=== PATIENT | male | born 1980 | race Caucasian/White ===

== ENCOUNTER 2022-04-14 00:16 | Emergency (ER) | payer MEDICAID, SELFPAY ==
[2022-04-14 00:17] VITALS: BP 137/88; PULSE 97; RESP 18; TEMP 36.8; O2SAT 99; BMI 22.1
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
[2022-04-14 01:14] VITALS: BP 131/80; PULSE 81; RESP 16; O2SAT 97
[2022-04-14] MEDS: Ibuprofen 600 MG Tablet PO (01:16)
== END 2022-04-14 01:17 | disposition home or self-care (01) ==
PROVIDERS: Emergency Provider Emergency Medicine; Visit Provider Emergency Medicine
DX: S16.1XXA Strain of muscle, fascia and tendon at neck level, initial encounter (principal); S80.02XA Contusion of left knee, initial encounter; F17.210 Nicotine dependence, cigarettes, uncomplicated; V44.6XXA Car passenger injured in collision with heavy transport vehicle or bus in traffic accident, initial encounter
CPT/HCPCS: 72040; 73564; 99283

== ENCOUNTER 2023-10-31 21:18 | Observation (INO) | payer MEDICAID, SELFPAY ==
[2023-10-31 21:19] VITALS: BP 127/86; PULSE 112; RESP 16; TEMP 36.6; O2SAT 98; BMI 21.5
[2023-10-31 22:30] VITALS: BP 108/70; O2SAT 96
[2023-10-31 23:00] VITALS: BP 104/74; PULSE 101; RESP 18; O2SAT 97
[2023-10-31 23:00] LABS: Absolute Lymphocyte Count 3.18 X10^3/uL (0.83-4.51); Absolute Neutrophil Count 4.9 X10^3/uL (2.0-7.7); Basophil# 0.05 X10^3/uL; Basophil% 0.6 % (0-1); Eosinophil# 0.08 X10^3/uL; Eosinophils% 0.9 % (0-5); Hematocrit 38.6 % (40-54); Hemoglobin 12.4 g/dL (13.0-16.5); Lymphocyte # 3.18 X10^3/ul (0.83-4.51); Lymphocyte % 35.6 % (19-41); Mean Corp Hgb Conc 32.1 g/dL (32-36); Mean Corpuscular Hgb 29.2 pg (27.0-32.0); Mean Corpuscular Volume 90.8 fL (80-94); Mean Platelet Vol. 8.6 fl (6.2-12.0); Monocyte# 0.72 X10^3/uL; Monocyte% 8.1 % (0-10); NRBC Flagged by Analyzer 0 % (0-5); Neutrophil # 4.89 X10^3/uL (2.7-7.7); Neutrophil % 54.7 % (47-70); Platelet Count 316 K/mm3 (150-450); RBC Distribution Width CV 12.5 % (11.6-14.6); Red Blood Count 4.25 M/mm3 (4.6-6.2); White Blood Count 8.9 K/mm3 (4.4-11.0)
[2023-10-31 23:13] LABS: Alcohol, Blood (Medical)-Serum < 3.0 mg/dL
[2023-10-31 23:17] LABS: AST(SGOT) 12 U/L (15-37); Alanine Aminotransfer ALT/SGPT 21 U/L (16-61); Albumin, Serum 3.7 g/dL (3.2-5.0); Alkaline Phosphatase 59 U/L (45-117); Anion Gap 7 (5-15); BUN 16 mg/dL (7-18); BUN/Creat Ratio 13.9 RATIO (10-20); Bilirubin, Direct 0.23 mg/dL (0.00-0.30); Calcium,Total 8.8 mg/dL (8.5-10.1); Chloride 103 mmol/L (98-107); Creatinine, Serum 1.15 mg/dL (0.70-1.30); EST Glomerular Filtration Rate 75 mL/min (>60); Est Glom Filt Rate - Afr Amer 90 mL/min (>60); Estimated Creatinine Clearance 82.17 ml/min; Globulin 3.5 g/dL (2.2-4.2); Glucose 111 mg/dL (74-106); Potassium 3.6 mmol/L (3.5-5.1); Protein, Total 7.2 g/dL (6.4-8.2); Sodium Level 138 mmol/L (136-145)
[2023-11-01] VITALS: BP 98/65; O2SAT 99
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
[2023-11-01 01:00] VITALS: BP 109/66; PULSE 93; RESP 18; TEMP 36.2; O2SAT 98
[2023-11-01 01:21] LABS: Amphetamine Urine VISTA POSITIVE (<1000 ng/mL); Barbiturate Urine VISTA NEGATIVE (< 200 ng/mL); Benzodiazepine Urine VISTA NEGATIVE (< 200 ng/mL); Cocaine Urine VISTA NEGATIVE (< 300 ng/mL); Ecstacy Urine VISTA POSITIVE (< 500 ng/mL); Methadone Urine VISTA NEGATIVE (< 300 ng/mL); PCP Urine VISTA NEGATIVE (< 25 ng/mL); THC Urine VISTA POSITIVE (< 50 ng/mL); Vista UDS pH Range 5
[2023-11-01 01:57] VITALS: BMI 19.3
[2023-11-01 02:16] VITALS: BP 106/73; PULSE 94; RESP 16; TEMP 36.4; O2SAT 99
--- NOTE | 2023-11-01 07:38 | PCM.PN.HOSP ---
Reason for Visit Reason for Visit: Opiate detox Subjective Subjective Mr. Louis is a 42-year-old male who presents emergency department at [facility] on 11/01/2023 early in the morning requesting detox from fentanyl. He also reports associated methamphetamine use and a history of alcohol use. He is no longer drinking alcohol on a regular basis. He reports substance abuse has been intravenous. Withdrawal symptoms started approximately 1 day prior to presentation after his last use. Track rousseau were noted on bilateral upper extremities on presentation but no signs of infection was noted and patient did indicate he had chronic issues with skin picking due to his methamphetamine use. Vital signs on presentation showed a temperature of 97.8, heart rate 112, respiratory rate 16, blood pressure was 127/86 and pulse ox was 98% on room air. His CBC was overall unremarkable. Chemistry panel was unremarkable. Urine tox screen showed positivity for MDMA, amphetamines and cannabinoids. Alcohol level was unremarkable. He was admitted to the medical floor and started on a phenobarbital taper with supportive medications for symptom control related to opiate detox. Objective Data Objective Data Vital Signs: Vital Signs Temp Pulse Resp BP Pulse Ox O2 Del Method 97.5 F L 94 16 106/73 99 Room Air 11/01/23 02:16 11/01/23 02:16 11/01/23 02:16 11/01/23 02:16 11/01/23 02:16 11/01/23 02:16 Oxygen Delivery Method Room Air Weight: 64.5 kg Body Mass Index (BMI) 19.3 Intake & Output: Intake and Output for Last 24 Hours 10/30/23 10/31/23 11/01/23 23:59 23:59 23:59 Intake Total 440 / 440 Balance 440 / 440 Lab / Micro Data 10/31/23 22:53 10/31/23 22:53 Labs: Laboratory Results - last 24 hr 10/31/23 22:53: WBC 8.9, RBC 4.25 L, Hgb 12.4 L, Hct 38.6 L, MCV 90.8, MCH 29.2, MCHC 32.1, RDW Std Deviation 41.0, RDW Coeff of Paul 12.5, Plt Count 316, MPV 8.6, Immature Gran % (Auto) 0.100, Neut % (Auto) 54.7, Lymph % (Auto) 35.6, [place] % (Auto) 8.1, Eos % (Auto) 0.9, Baso % (Auto) 0.6, Absolute Neuts (auto) 4.9, Absolute Lymphs (auto) 3.18, Nucleated RBC % 0, Sodium 138, Potassium 3.6, Chloride 103, Carbon Dioxide 28.0, Anion Gap 7, BUN 16, Creatinine 1.15, Estim Creat Clear Calc 82.17, Est GFR (MDRD) Af Amer 90, Est GFR (MDRD) Non-Af 75, BUN/Creatinine Ratio 13.9, Glucose 111 H, Calcium 8.8, Total Bilirubin 0.70, Direct Bilirubin 0.23, AST 12 L, ALT 21, Alkaline Phosphatase 59, Total Protein 7.2, Albumin 3.7, Globulin 3.5, Ethyl Alcohol < 3.0 11/01/23 01:00: Urine Opiates Screen NEGATIVE, Urine Methadone Screen NEGATIVE, Ur Barbiturates Screen NEGATIVE, Ur Phencyclidine Scrn NEGATIVE, Ur Amphetamines Screen POSITIVE H, MDMA (Ecstasy) Screen POSITIVE H, U Benzodiazepines Scrn NEGATIVE, Urine Cocaine Screen NEGATIVE, U Cannabinoids Screen POSITIVE H, Ur Drug Screen Comment Assessment & Plan Assessment/Plan (1) Desire for detoxification: (2) Opiate withdrawal: (3) Withdrawal from methamphetamine: PLAN: Plan Acute opiate withdrawal -Continue buprenorphine taper -continue supportive medications next-since patient has history of IVDU will check HIV and hepatitis C antibody -If antibodies positive will check viral load -180 consultation for assistance with discharge planning Methamphetamine abuse -highly recommend cessation -No options for detox -Follow-up after discharge as delineated by 180 after evaluation History of EtOH abuse -Patient reports he is no longer using Tobacco abuse -Ongoing tobacco abuse next-highly recommend cessation -Nicotine patch available DVT prophylaxis -continue Lovenox CODE STATUS -full code
[2023-11-01 07:47] VITALS: BP 106/67; PULSE 76; RESP 18; TEMP 36.6; O2SAT 98
[2023-11-01] MEDS: hydrOXYzine PAM 25 MG Capsule 50 MG PO ×2 (09:40→16:02)
[2023-11-01] MEDS: Methocarbamol 750 MG Tablet PO ×2 (09:40→16:02)
[2023-11-01] MEDS: cloNIDine HCl 0.1 MG Tablet PO (09:40)
--- NOTE | 2023-11-01 10:27 | ADDICTION ---
clinician met with client to discuss his hx of addiction and motivation to be sober. client presented cooperative and precontemplative relating to be sobriety. he reported I like getting high, it's fun. clinician utilized MO skills to assist client in exploring change and sobriety. client identified that he can be sober at [facility] in [place]; they are sober and this area triggers him to want to use.
--- NOTE | 2023-11-01 14:15 | CASEMGMT ---
Social Work SW attempted to see pt twice for SDOH, pt is sleeping soundly. SW will continue to try to see pt during this hospital stay. TANIKA Huddelston
[2023-11-01 15:56] VITALS: BP 109/67; PULSE 79; RESP 18; TEMP 36.6; O2SAT 97
[2023-11-01] MEDS: Buprenorphine HCl 2 MG TAB.SUBL SL (16:04)
--- NOTE | 2023-11-01 16:12 | NURSING ---
pt father phoned in and updated. states close friend (pt's brothers brian) is Samantha Jones [phone] and states they are planning on coming up to [place] to pick pt up at day of discharge. Informed cannot release any information other than those listed on demographics unless pt authorizes. States understanding
--- NOTE | 2023-11-01 17:01 | NURSING ---
pt states okay to release information to Samantha Jones
[2023-11-01 19:55] VITALS: BP 104/63; PULSE 86; RESP 14; TEMP 36.7; O2SAT 99
[2023-11-01] MEDS: Dicyclomine 10 MG Capsule 20 MG PO (20:00)
[2023-11-01] MEDS: Gabapentin 300 MG Capsule PO (20:00)
[2023-11-02] MEDS: Buprenorphine HCl 2 MG TAB.SUBL SL ×3 (00:15→15:49)
[2023-11-02] MEDS: Methocarbamol 750 MG Tablet PO ×4 (00:15→21:45)
[2023-11-02] MEDS: hydrOXYzine PAM 25 MG Capsule 50 MG PO ×4 (00:15→21:45)
[2023-11-02 04:30] VITALS: BP 106/70; PULSE 84; RESP 16; TEMP 36.6; O2SAT 99
[2023-11-02] MEDS: Dicyclomine 10 MG Capsule 20 MG PO ×2 (09:02→15:49)
[2023-11-02] MEDS: Ondansetron 8 MG Tablet PO (09:02)
--- NOTE | 2023-11-02 09:12 | ADDICTION ---
clinician met with client to follow up. he presented as anxious and when asked, he endorsed sx's of anxiety. client continues to deny the need for tx.
[2023-11-02] MEDS: Gabapentin 300 MG Capsule PO ×2 (10:14→21:45)
[2023-11-02] MEDS: cloNIDine HCl 0.1 MG Tablet PO (10:14)
--- NOTE | 2023-11-02 11:40 | PCM.PN.HOSP ---
Reason for Visit Reason for Visit: Opiate detox Subjective Subjective Patient states he is having minimal symptoms. Denies any nausea or vomiting. Denies diarrhea. Biggest complaint is myalgias. Hoping to be able to be discharged tomorrow as his family is going to be here to take him to [place]. He does state that he feels like he will be good enough tomorrow to be discharged. Objective Data Objective Data Vital Signs: Vital Signs Temp Pulse Resp BP Pulse Ox O2 Del Method 98 F 84 16 106/70 99 Room Air 11/02/23 04:30 11/02/23 04:30 11/02/23 04:30 11/02/23 04:30 11/02/23 04:30 11/02/23 04:30 Oxygen Delivery Method Room Air Weight: 64.5 kg Body Mass Index (BMI) 19.3 Intake & Output: Intake and Output for Last 24 Hours 10/31/23 11/01/23 11/02/23 23:59 23:59 23:59 Intake Total 440 / 440 Balance 440 / 440 Lab / Micro Data 10/31/23 22:53 10/31/23 22:53 Physical Exam Const alert, oriented x3, no apparent distress, average body habitus and well nourished; Negative for healthy appearing Constitutional Narrative: Middle-aged, white male, lying in bed sleeping but awakens easily, appears older than stated age, does not appear toxic HEENT head/scalp atraumatic Head and Scalp: normocephalic Extremity no clubbing, cyanosis or edema Neuro oriented x3, moves all extremities and no focal motor deficits Psych Psych Narrative: Affect is slightly flat however patient makes good eye contact and interacts appropriately Assessment & Plan Assessment/Plan (1) Desire for detoxification: (2) Opiate withdrawal: PLAN: Plan Acute opiate withdrawal -Continue buprenorphine taper -continue supportive medications -HIV and hepatitis C antibody are pending -If antibodies positive will check viral load -180 has evaluated the patient and the patient is planning to move to [place] Methamphetamine abuse -highly recommend cessation -No options for detox History of EtOH abuse -Patient reports he is no longer using Tobacco abuse -Ongoing tobacco abuse -highly recommend cessation -Nicotine patch available DVT prophylaxis -continue Lovenox CODE STATUS -full code Charges/Coding Visit Charges Inpatient E&M: 81655 Subs Hosp L1
[2023-11-02 15:47] VITALS: BP 104/81; PULSE 81; RESP 16; TEMP 36.7; O2SAT 98
[2023-11-02] MEDS: traZODone 100 MG Tablet PO (21:45)
[2023-11-02] MEDS: Acetaminophen 500 MG Tablet 1000 MG PO (21:45)
[2023-11-02 22:00] VITALS: BP 108/52; PULSE 76; RESP 16; TEMP 36.8; O2SAT 98
[2023-11-03] MEDS: Buprenorphine HCl 2 MG TAB.SUBL SL ×3 (01:20→16:38)
[2023-11-03 02:48] VITALS: BP 118/68; PULSE 81; RESP 16; TEMP 36.6; O2SAT 98
[2023-11-03] MEDS: hydrOXYzine PAM 25 MG Capsule 50 MG PO (08:52)
[2023-11-03 08:54] VITALS: BP 99/54; PULSE 71; RESP 18; TEMP 36.4; O2SAT 100
[2023-11-03] MEDS: Acetaminophen 500 MG Tablet 1000 MG PO (10:39)
[2023-11-03] MEDS: Methocarbamol 750 MG Tablet PO ×2 (10:39→21:54)
--- NOTE | 2023-11-03 12:06 | PCM.PN.HOSP ---
Reason for Visit Reason for Visit: Opiate detox Subjective Subjective No specific complaints at this time. Family had trouble getting a rental car and will be here till tomorrow to pick him up for discharge. Objective Data Objective Data Vital Signs: Vital Signs Temp Pulse Resp BP Pulse Ox O2 Del Method 97.6 F L 71 18 99/54 L 100 Room Air 11/03/23 08:54 11/03/23 08:54 11/03/23 08:54 11/03/23 08:54 11/03/23 08:54 11/03/23 08:54 Oxygen Delivery Method Room Air Weight: 64.5 kg Body Mass Index (BMI) 19.3 Intake & Output: Intake and Output for Last 24 Hours 11/01/23 11/02/23 11/03/23 23:59 23:59 23:59 Intake Total 440 / 440 Balance 440 / 440 Lab / Micro Data 10/31/23 22:53 10/31/23 22:53 Physical Exam Const alert, oriented x3, no apparent distress and average body habitus Constitutional Narrative: Middle-aged, white male, laying in left side-lying, appears comfortable, nontoxic, is awake watching television HEENT head/scalp atraumatic Head and Scalp: normocephalic Extremity no clubbing, cyanosis or edema Neuro oriented x3 and moves all extremities Psych Psych Narrative: Affect is flat but patient interacts appropriately Assessment & Plan Assessment/Plan (1) Desire for detoxification: (2) Opiate withdrawal: PLAN: Plan Acute opiate withdrawal -Continue buprenorphine taper -continue supportive medications -HIV and hepatitis C antibody are still pending -If antibodies positive will check viral load -180 has evaluated the patient and the patient is planning to move to [place] Methamphetamine abuse -highly recommend cessation -No options for detox History of EtOH abuse -Patient reports he is no longer using Tobacco abuse -Ongoing tobacco abuse -highly recommend cessation -Nicotine patch available DVT prophylaxis -continue Lovenox CODE STATUS -full code Charges/Coding Visit Charges Inpatient E&M: 81071 Subs Hosp L1
[2023-11-03 12:58] VITALS: BP 98/59; PULSE 91; RESP 16; TEMP 36.6; O2SAT 99
[2023-11-03 16:30] LABS: HIV - WCH Non-Reactive (Nonreactive); Hepatitis C Antibody Preliminary Reactive (Nonreactive)
--- NOTE | 2023-11-03 16:33 | NURSING ---
HCV RNA came back positive per Drex. This RN texted Dr. Rosales via [employer] to inform her of the results.
[2023-11-03 16:40] VITALS: BP 100/62; PULSE 90; RESP 18; TEMP 36.6; O2SAT 100
[2023-11-03 21:49] VITALS: BP 115/77; PULSE 81; RESP 16; TEMP 36.4; O2SAT 98
[2023-11-03] MEDS: traZODone 100 MG Tablet PO (21:51)
[2023-11-03] MEDS: Dicyclomine 10 MG Capsule 20 MG PO (21:54)
[2023-11-03] MEDS: Gabapentin 300 MG Capsule PO (21:57)
[2023-11-04] MEDS: Buprenorphine HCl 2 MG TAB.SUBL SL (03:17)
[2023-11-04 03:18] VITALS: BP 103/56; PULSE 76; RESP 16; TEMP 36.4; O2SAT 98
--- NOTE | 2023-11-04 08:20 | PCM.DC.SUM ---
Providers Date of Admission: 11/01/23 Date of Discharge: 11/04/23 Primary Care Physician: No Primary Care Phys Reason For Visit: ACUTE FENTANYL & METHAMPHETAMINE WITHDRAWL Diagnosis Discharge Diagnosis (1) Desire for detoxification: Status: Acute (2) Opiate withdrawal: Status: Acute Code(s): F11.93 - Opioid use, unspecified with withdrawal Medications at Discharge Home Medications NK 04/26/18 Hospital Course Operations None Procedures None Summary of Care Provided Minutes Spent on Discharge: 25 Hospital Course: Mr. Louis is a 42-year-old male who presents emergency department at [facility] on 11/01/2023 early in the morning requesting detox from fentanyl. He also reports associated methamphetamine use and a history of alcohol use. He is no longer drinking alcohol on a regular basis. He reports substance abuse has been intravenous. Withdrawal symptoms started approximately 1 day prior to presentation after his last use. Track rousseau were noted on bilateral upper extremities on presentation but no signs of infection was noted and patient did indicate he had chronic issues with skin picking due to his methamphetamine use. Vital signs on presentation showed a temperature of 97.8, heart rate 112, respiratory rate 16, blood pressure was 127/86 and pulse ox was 98% on room air. His CBC was overall unremarkable. Chemistry panel was unremarkable. Urine tox screen showed positivity for MDMA, amphetamines and cannabinoids. Alcohol level was unremarkable. He was admitted to the medical floor and started on a phenobarbital taper with supportive medications for symptom control related to opiate detox. His detox was overall uneventful. He did meet with 180 and his plan is to move to [place] where his temptation to use would be much less as he will be in a supportive environment rather in the environment here in which she is tempted to use and uses on a regular basis. We did find that his hepatitis C antibody was positive. This resolved the day prior to discharge and we did were unable to send a viral load to see if he has active infection or infection that was cleared. His LFTs were normal on presentation. I do recommend he have an outpatient viral load for hepatitis C. HIV was nonreactive. Discharge diagnoses: Acute opiate withdrawal Amphetamine abuse History of alcohol abuse Tobacco abuse Hepatitis C antibody positivity Physical Exam Const alert, oriented x3, no apparent distress, average body habitus, no limitations and well nourished; Negative for healthy appearing Constitutional Narrative: Middle-aged, white male, laying in left side-lying, appears comfortable, nontoxic, is awake watching television General Appearance: cooperative, comfortable, well kempt and well developed Exam Limitations: no limitations Nutritional Appearance: thin HEENT normocephalic, head/scalp atraumatic, hearing grossly normal bilaterally and moist oral mucous membranes HEENT Narrative: Mallampati is 2, no thrush Resp normal respiratory effort, no retractions, no use of accessory muscles and clear to auscultation bilaterally Cardio regular rate, regular rhythm, S1 normal heart sound, S2 normal heart sound, no murmurs, no rub, no gallops and no clicks GI normal to inspection, nondistended, normoactive bowel sounds, soft to palpation and non-tender Extremity no clubbing, cyanosis or edema Extremity Narrative: Pedal and radial pulses are 2+ Neuro oriented x3, moves all extremities and no focal motor deficits Speech: speech normal Psych affect normal Psych Narrative: Affect is less flat today, patient interacts appropriately, very, appreciative for care Weight / BMI Weight Weight: 64.5 kg Body Mass Index (BMI) 19.3 ABG / Lab / Microbiology Data 10/31/23 22:53 10/31/23 22:53 Laboratory: Laboratory Results - last 24 hr 10/31/23 22:53: Hepatitis C Antibody Preliminary Reactive, HIV 1&2 Antibody Non-Reactive D/C Instructions Discharge Diet: No restrictions Meaningful Use Info Meaningful Use Meaningful Use Diagnoses (Choose all that apply): None applicable Ischemic Stroke Statin Dosing Therapy Reference: STATIN DOSE THERAPY REFERENCE: * Patients > 75 years receive moderate or high dose statin therapy. * Patients 75 years or YOUNGER should receive HIGH intensity statin dose unless contraindicated. You will be required to document reason for non-treatment if statin daily dose does not meet guidelines. HIGH DOSE STATIN THERAPY DAILY Atorvastatin > than or = to 40 mg Rosuvastatin > than or = to 20 mg Amlodipine + Atorvastatin > than or = to 2.5/40 mg Ezetimibe + Simvastatin 10/80 mg Simvastatin 80mg Discharge Plan Admission Admit Date/Time: 11/01/23 01:06 Primary Reason for Your Visit: Opiate detox Attending Provider: Lana Rosales Primary Care Provider: Jorge Physician,No Primary Consulting Providers: Enrique Leonardo Discharge Orders/Prescriptions Prescriptions: Continued NK Referrals / Follow Up: Care Physician,No Primary [Primary Care Provider] - Disposition Disposition (needs filled in before D/C Order can be placed): Home, Self Care Charges/Coding Visit Charges Inpatient E&M: 27395 Disch Hosp
[2023-11-04 08:21] VITALS: BP 127/84; PULSE 110; RESP 18; TEMP 37; O2SAT 98
[2023-11-04] MEDS: hydrOXYzine PAM 25 MG Capsule 50 MG PO (09:49)
[2023-11-04] MEDS: Gabapentin 300 MG Capsule PO (09:49)
[2023-11-05 22:06] LABS: HCV Quant. RNA PCR 646000 IU/mL (.)
== END 2023-11-04 09:51 | disposition home or self-care (01) ==
LOC: ED 11-01 00:28 → MS3 11-01 01:17
PROVIDERS: Admitting Provider Internal Medicine; Emergency Provider Emergency Medicine; Visit Provider Internal Medicine
DX: F11.13 Opioid abuse with withdrawal (principal); F15.13 Other stimulant abuse with withdrawal; F17.210 Nicotine dependence, cigarettes, uncomplicated; B19.20 Unspecified viral hepatitis C without hepatic coma
CPT/HCPCS: 36415; 80048; 80076; 80307; 80320; 85025; 86703; 86803; 87522; 97802; 99283; 99406; H0012; G0480